=== PATIENT | female | born 1995 | race Hispanic/Latino ===

== ENCOUNTER 2021-02-08 18:28 | Emergency (ER) | payer SELFPAY ==
[~2021-02-08] VITALS: Ht 157.5 cm; Wt 68.0 kg
[2021-02-08] MEDS ORDERED: ACETAMINOPHEN 325 MG TAB ONE (19:12)
[2021-02-08] MEDS ORDERED: ACETAMINOPHEN 325 MG TAB PO ONE (19:15)
[2021-02-08 19:44] LABS: CLARITY,URINE SL CLOUDY (CLEAR); COLOR,URINE AMBER (YELLOW)
[2021-02-08 19:45] LABS: KETONES,URINE 2+ (NEGATIVE); LEUKOCYTE ESTERASE ,URINE MODERATE (NEGATIVE); NITRITE,URINE NEGATIVE (NEGATIVE); PROTEIN,URINE DIPSTICK 2+ (NEGATIVE); URINE UROBILINOGEN 1 mg/dL (0.2 - 1)
[2021-02-08 19:58] LABS: BACTERIA,URINE MANY /HPF
== END 2021-02-08 20:45 | disposition home or self-care (01) ==
LOC: ER 19:09
DX: R50.9 Fever, unspecified (principal); R05 Cough; J40 Bronchitis, not specified as acute or chronic; J06.9 Acute upper respiratory infection, unspecified; N39.0 Urinary tract infection, site not specified; F41.9 Anxiety disorder, unspecified
CPT/HCPCS: 71045; 81001; 81025; 99283; U0002